=== PATIENT | male | born 1990 | race Caucasian/White ===

== ENCOUNTER 2021-12-18 22:21 | Emergency (ER) | payer SELFPAY ==
[~2021-12-18] VITALS: Ht 162.6 cm; Wt 100.0 kg
[2021-12-18 22:30] VITALS: BP 142/87
[2021-12-18] MEDS ORDERED: TETANUS, DIPHTHERIA, PERTUSSIS VAC/PF 0.5ML (>10YR OLD) IM ONE (23:00)
[2021-12-18 23:53] LABS: BASOPHILS % 0.5 % (0.0-2.0); CHLORIDE 107 mEq/L (98-107); EOSINOPHILS % 2.9 % (0.0-5.0); HEMATOCRIT. 42.1 % (42.0-52.0); HEMOGLOBIN. 14.1 g/dL (14.0-18.0); LYMPHOCYTES % 33.2 % (20.0-50.0); MEAN CORPUSCULAR HEMOGLOBIN 29.9 pg (28.0-32.0); MEAN CORPUSCULAR VOLUME 89.6 fL (80.0-94.0); MEAN PLATELET VOLUME 7.9 fl (7.4-10.4); MONOCYTES % 8.3 % (2.0-8.0); NEUTROPHILS % 55.1 % (40.0-76.0); PLATELET 263 x1000/uL (130-400); RED CELL DISTRIBUTION WIDTH 13.7 % (11.6-14.6)
[2021-12-19 00:02] LABS: ETHANOL BLOOD 222 mg/dL
== END 2021-12-19 06:33 | disposition home or self-care (01) ==
LOC: ER 22:21
DX: F10.129 Alcohol abuse with intoxication, unspecified (principal); Y90.7 Blood alcohol level of 200-239 mg/100 ml; S60.511A Abrasion of right hand, initial encounter; W18.02XA Striking against glass with subsequent fall, initial encounter; Y93.89 Activity, other specified; Y92.9 Unspecified place or not applicable
CPT/HCPCS: 36415; 73130; 80053; 80320; 85025; 90471; 90715; 99284; G0480